=== PATIENT | female | born 1965 | race Caucasian/White ===

== ENCOUNTER → 2017-04-01 | Outpatient (CLI) | payer OTHER ==
--- NOTE | 2017-04-01 11:22 | MM ---
Reason for exam: clinical finding. Last mammogram was performed 1 year and 6 months ago. History: Patient is postmenopausal. Family history of breast cancer in aunt. Physical Findings: Nurse Summary: 0.5cn nodule in the right breast at 3 o'clock at nipple (nurse kp). MG 3D Diag Mammo W/Cad LM Bilateral CC and MLO view(s) were taken. Prior study comparison: September 15, 2015, mammogram. Finding: There are typically benign round, diffuse/scattered calcifications in the right breast. There is no discrete abnormality at BB in the right breast. Ultrasound palpable abnormality in the right breast. No significant changes in finding since September 15, 2015. These results were verbally communicated with the patient and result sheet given to the patient on 04/01/17. ASSESSMENT: Benign, BI-RAD 2 RECOMMENDATION: Routine screening mammogram of both breasts in 1 year. Back on schedule. Manage on a clinical basis with regard to palpable abnormality.
--- NOTE | 2017-04-01 11:24 | USB ---
Reason for exam: additional evaluation requested from abnormal screening. History: Patient is postmenopausal. Family history of breast cancer in aunt. US Breast Limited RT Right breast ultrasound demonstrates a 0.7 x 0.2 x 0.8cm cystic lesion at 3 o'clock at nipple, corresponds to palpable. These results were verbally communicated with the patient and result sheet given to the patient on 04/01/17. ASSESSMENT: Benign, BI-RAD 2 RECOMMENDATION: Routine screening mammogram of both breasts in 1 year. Back on schedule.
== END | disposition home or self-care (01) ==
LOC: RADMAMWWP 09:33
PROVIDERS: ATTEND Family Medicine
DX: N63.10 Unspecified lump in the right breast, unspecified quadrant (principal); R92.8 Other abnormal and inconclusive findings on diagnostic imaging of breast
CPT/HCPCS: 77066; 76642; G0279

== ENCOUNTER 2017-07-22 17:36 | Emergency (ER) | payer OTHER ==
[2017-07-22 19:22] VITALS: BP 128/72; PULSE 70; RESP 16; TEMP 98
--- NOTE | 2017-07-22 19:49 | XR ---
EXAMINATION TYPE: XR knee complete RT DATE OF EXAM: 07/22/2017 COMPARISON: NONE HISTORY: Knee pain TECHNIQUE: 3 views FINDINGS: I see no fracture nor dislocation. Joint spaces are normal. There is no sign of knee joint effusion. IMPRESSION: Negative right knee exam.
--- NOTE | 2017-07-22 22:12 | US ---
EXAMINATION TYPE: US venous doppler duplex LE RT DATE OF EXAM: 07/22/2017 9:37 PM COMPARISON: NONE CLINICAL HISTORY: Pain. Right knee pain x couple weeks SIDE PERFORMED: Right TECHNIQUE: The lower extremity deep venous system is examined utilizing real time linear array sonog braulio with graded compression, doppler sonography and color-flow sonography. VESSELS IMAGED: External Iliac Vein (EIV) Common Femoral Vein Deep Femoral Vein Greater Saphenous Vein * Femoral Vein Popliteal Vein Small Saphenous Vein * Proximal Calf Veins (* superficial vessels) Right Leg: Appears negative for DVT, popliteal fossa: 5.3 x 1.7 x 3.5cm complex cystic area, probabl e Martin's cyst IMPRESSION: No evidence of deep venous thrombosis in the right leg. Large popliteal cyst.
--- NOTE | 2017-07-22 22:52 | ED ---
General Adult HPI - General Chief complaint: Extremity Problem,Nontraumatic Stated complaint: R/O DVT PAIN IN BACK OF RT LEG BEHIND KNEE Time Seen by Provider: 07/22/17 21:21 Source: patient, RN notes reviewed, old records reviewed Mode of arrival: ambulatory Limitations: no limitations - History of Present Illness Initial comments: This is a 32-year-old female the ER for eversion of left knee pain. Severe pain in left knee left calf. No travel history no prior history of DVT. Patient states she has surgery scheduled in 2 weeks is concern for possible blood clot in her left lower [place]. Again denies trauma. Pain is the back aspect of her left knee - Related Data Home Medications Medication Instructions Recorded Confirmed No Known Home Medications [No 12/27/14 07/22/17 Known Home Medications] Allergies Allergy/AdvReac Type Severity Reaction Status Date / Time codeine AdvReac Abdominal Verified 07/22/17 21:41 Pain Review of Systems ROS Statement: Those systems with pertinent positive or pertinent negative responses have been documented in the HPI. ROS Other: All systems not noted in ROS Statement are negative. Past Medical History Past Medical History: No Reported History History of Any Multi-Drug Resistant Organisms: None Reported Past Surgical History: No Surgical Hx Reported Past Psychological History: No Psychological Hx Reported Smoking Status: Current every day smoker Past Alcohol Use History: None Reported Past Drug Use History: None Reported General Exam Limitations: no limitations General appearance: alert, in no apparent distress Head exam: Present: atraumatic, normocephalic, normal inspection Eye exam: Present: normal appearance, PERRL, EOMI. Absent: scleral icterus, conjunctival injection, periorbital swelling ENT exam: Present: normal exam, mucous membranes moist Neck exam: Present: normal inspection. Absent: tenderness, meningismus, lymphadenopathy Respiratory exam: Present: normal lung sounds bilaterally. Absent: respiratory distress, wheezes, rales, rhonchi, stridor Cardiovascular Exam: Present: regular rate, normal rhythm, normal heart sounds. Absent: systolic murmur, diastolic murmur, rubs, gallop, clicks GI/Abdominal exam: Present: soft, normal bowel sounds. Absent: distended, tenderness, guarding, rebound, rigid Extremities exam: Present: normal inspection, full ROM, normal capillary refill. Absent: tenderness, pedal edema, joint swelling, calf tenderness Back exam: Present: normal inspection Neurological exam: Present: alert, oriented X3, CN II-XII intact Psychiatric exam: Present: normal affect, normal mood Skin exam: Present: warm, dry, intact, normal color. Absent: rash Course Vital Signs 07/22/17 19:17 Temperature 98 F Pulse Rate 70 Respiratory 16 Rate Blood Pressure 128/72 O2 Sat by Pulse 99 Oximetry Medical Decision Making - Medical Decision Making 21 female the ER for evaluation of left knee pain. Ultrasound shows martin cyst , x-ray will be discharged home - Radiology Data Radiology results: report reviewed (X-ray left knee negative, ultrasound positive martin cyst), image reviewed Disposition Clinical Impression: Martin's cyst of knee, Synovial cyst of popliteal space [Martin], left knee Disposition: HOME SELF-CARE Condition: Good Instructions: Bakers Cyst (ED) Is patient prescribed a controlled substance at d/c from ED?: No Referrals: Yolanda Lowry III, MD [Primary Care Provider] - 1-2 days
== END 2017-07-22 23:02 | disposition home or self-care (01) ==
LOC: EC 17:36
DX: M71.22 Synovial cyst of popliteal space [Baker], left knee (principal); F17.200 Nicotine dependence, unspecified, uncomplicated; Z88.5 Allergy status to narcotic agent
CPT/HCPCS: 99284